=== PATIENT | female | born 1985 | race African-American/Black ===

== ENCOUNTER 2019-03-27 17:37 | Emergency (ER) | payer BC ==
[~2019-03-27] VITALS: Ht 165.1 cm; Wt 74.0 kg
[2019-03-27 18:04] VITALS: BP 127/81
== END 2019-03-27 23:48 | disposition left against medical advice (07) ==
LOC: ER 17:37
DX: R06.02 Shortness of breath (principal); Z53.21 Procedure and treatment not carried out due to patient leaving prior to being seen by health care provider
CPT/HCPCS: 81025; 93005